=== PATIENT | male | born 1980 | race Caucasian/White ===

== ENCOUNTER 2017-01-29 01:44 | Emergency (ER) | payer SELFPAY ==
[2017-01-29 02:00] VITALS: RESP 16
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
[2017-01-29 05:32] VITALS: BP 100/60; PULSE 82; TEMP 98.6; O2SAT 94
== END 2017-02-03 09:12 | disposition home or self-care (01) ==
PROC: 0CQ0XZZ Repair Upper Lip, External Approach (ICD-10-PCS; principal; 2017-01-29)
DX: S01.511A Laceration without foreign body of lip, initial encounter (principal); V18.4XXA Pedal cycle driver injured in noncollision transport accident in traffic accident, initial encounter; Y92.410 Unspecified street and highway as the place of occurrence of the external cause; Y99.8 Other external cause status; Y93.55 Activity, bike riding